=== PATIENT | female | born 1950 | race Caucasian/White ===

== ENCOUNTER → 2019-09-02 | Outpatient (CLI) | payer OTHER ==
--- NOTE | 2019-09-02 10:25 | PCVCIMAG ---
APPROVED REPORT Study performed: 09/02/2019 08:29:17 EXAM: Comprehensive 2D, Doppler, and color-flow Echocardiogram Patient Location: Echo lab Room #: 2Status: routine BSA: 1.67 HR: 75 bpmBP: 136/84 mmHg Rhythm: NSR Other Information Study Quality: Adequate Risk Factors: Cardiac Risk Factors: Hyperlipidemia Indications Abnormal ECG Dyspnea 2D Dimensions IVSd: 11.66 (7-11mm)LVOT Diam: 20.83 (18-24mm) LVDd: 43.35 mm PWd: 8.68 (7-11mm)Ascending Ao: 37.59 (22-36mm) LVDs: 18.24 (25-40mm) Left Atrium: 27.76 (27-40mm) Aortic Root: 28.84 mm LV Single Plane 4CH: 51.61 % LV Single Plane 2CH: 61.52 % Biplane EF: 57.7 % Volumes Left Atrial Volume (Systole) Single Plane 4CH: 26.63 mLSingle Plane 2CH: 39.90 mL Biplane LA Volume: 34.00 mLLA ESV Index: 20.00 mL/m2 Aortic Valve AoV Peak Monty.: 1.26 m/s AO Peak Gr.: 6.35 mmHgLVOT Max P.85 mmHg LVOT Max V: 0.84 m/s JUAN Vmax: 2.28 cm2 Mitral Valve E/A Ratio: 0.8 MV Decel. Time: 175.01 ms MV E Max Monty.: 0.63 m/s MV A Monty.: 0.76 m/s IVRT: 133.22 ms TDI E/Lateral E': 9.00E/Medial E': 15.75 Medial E' Monty.: 0.04 m/s Lateral E' Monty.: 0.07 m/s Pulmonary Valve PV Peak Monty.: 0.85 m/sPV Peak Gr.: 2.86 mmHg Pulmonary Vein P Vein S: 0.59 m/sP Vein A: 0.32 m/s P Vein D: 0.40 m/sP Vein A Dur.: 69.2 msec P Vein S/D Ratio: 1.48 Tricuspid Valve TR Peak Monty.: 2.09 m/s TR Peak Gr.: 17.44 mmHg TV Vmax: 0.51 m/sPA Pressure: 24.00 mmHg Left Ventricle The left ventricle is normal size. There is normal LV segmental wall motion. There is normal left ventricular wall thickness. Left ventricular systolic function is normal. The left ventricular ejection fraction is within the normal range. LVEF is 55-60%. Grade I - abnormal relaxation pattern. Right Ventricle The right ventricle is normal size. The right ventricular systolic function is normal. Atria The left atrium size is normal. The right atrium size is normal. Aortic Valve Aortic valve is trileaflet. The aortic valve is normal in structure and function. No aortic regurgitation is present. There is no aortic valvular stenosis. Mitral Valve The mitral valve is normal in structure. There is no mitral valve regurgitation noted. No evidence of mitral valve stenosis. Tricuspid Valve The tricuspid valve is normal in structure. Trace to mild tricuspid regurgitation with a PA pressure of 22 mmHg. No pulmonary hypertension. Pulmonic Valve The pulmonary valve is normal in structure. There is no pulmonic valvular regurgitation. Great Vessels The aortic root is normal in size. The ascending aorta is normal in size. Aortic arch is not well visualized. IVC is normal in size and collapses >50% with inspiration. Pericardium There is no pericardial effusion. There is no pleural effusion. <Conclusion> The left ventricle is normal size. There is normal left ventricular wall thickness. Left ventricular systolic function is normal. Grade I - abnormal relaxation pattern. The right ventricle is normal size. The left atrium size is normal. The aortic valve is normal in structure and function. There is no mitral valve regurgitation noted. Trace to mild tricuspid regurgitation with a PA pressure of 22 mmHg.
--- NOTE | 2019-09-02 10:29 | PCVCIMAG ---
APPROVED REPORT Study performed: 09/02/2019 09:26:28 Exam: Stress Echocardiogram Indication: Dyspnea, Abn EKG Patient Location: Echo lab Stress Nurse: Erendira Almaraz RN Room #: 2 Status: routine Ht: 5 ft 2 in HR: 75 bpm BP: 136/84 mmHg Rhythm: NSR Medical History Medical History: Hyperlipidemia Cardiac Risk Factors: Hyperlipidemia Previous Cardiac Procedures: none Pretest Chest Pain Characteristics: No chest pain Exercise History: Indeterminate Physical Disabilities: Back Procedure The patient underwent an Exercise Stress Test using the Eddy Protocol. Blood pressure, heart rate, and EKG were monitored. An Echocardiogram was performed by graphics edit technician in four stages in quad fashion. At peak stress, four selected images were obtained and placed side by side with resting images for comparison. Stress Test Details Stress Test: Exercise stress testing was performed using a Eddy protocol. HR Resting HR: 73 bpmMax Heart Rate (APMHR): 153 bpm Max HR Achieved: 137 bpmTarget HR (85% APMHR): 130 bpm % of APMHR: 89 Recovery HR: 87 bpm HR response to stress: Normal HR response to stress BP Resting BP: 136/84 mmHg Max BP: 170/74 mmHg Recovery BP: 144/80 mmHg BP response to stress: Normal blood pressure response to stress. ECG Resting ECG: Sinus Rhythm Stress ECG: Sinus Rhythm, NSSTT changes ST Change: Non-ischemic Maximum ST Deviation: 0.50 mm Arrhythmia: rare PAC Recovery ECG: Sinus Rhythm Recovery ST Change: Non-ischemic Recovery ST Deviation: -0.30 mm Recovery Arrhythmia: APC Clinical Reason for Termination: Maximal effort,back pain Stress Symptoms: fatigue Exercise duration: 7 min 45 sec Highest Stage Achieved: Stage 3: 3.4 mph at 14% grade. Exercise capacity: 10.1 METs Overall Exercise Capacity for Age: Average Scale: Active Angina Score: None No complications. Stress ECG Conclusion Muse Treadmill Score is 4.5 which is Moderate risk. Pre-Stress Echo The resting Echocardiogram showed normal left ventricular contractility with an estimated Ejection Fraction of about 55-60%. The resting echocardiogram demonstrated normal wall motion in all wall segments. Normal wall motion in all segments on baseline images. Post-Stress Echo The stress Echocardiogram showed normal left ventricular contractility with an estimated Ejection Fraction of about 65-70%. Compared to rest, there were no stress-induced wall motion abnormalities. Normal augmentation of wall motion in all segments on post stress images. Clinical No clinical or ECG evidence for ischemia. Conclusion Clinical Response: Non-ischemic Exercise Capacity: Average Stress ECG Response: Non-ischemic Stress Echo Images: Non-ischemic No clinical, EKG or echocardiographic evidence for ischemia. <Conclusion> No clinical, EKG or echocardiographic evidence for ischemia.
== END | disposition home or self-care (01) ==
LOC: PCVCIMAG 08:32
PROVIDERS: ATTEND Internal Medicine Cardiovascular Disease
DX: I36.1 Nonrheumatic tricuspid (valve) insufficiency (principal); E78.5 Hyperlipidemia, unspecified; R94.31 Abnormal electrocardiogram [ECG] [EKG]; E78.00 Pure hypercholesterolemia, unspecified; K21.9 Gastro-esophageal reflux disease without esophagitis; Z79.82 Long term (current) use of aspirin; Z88.8 Allergy status to other drugs, medicaments and biological substances; Z88.1 Allergy status to other antibiotic agents; Z79.899 Other long term (current) drug therapy
CPT/HCPCS: 93306; 93351